=== PATIENT | female | born 1960 | race Caucasian/White ===

== ENCOUNTER 2022-04-07 06:55 | Outpatient (REF) | payer OTHER, SELFPAY ==
[2022-04-07 11:34] LABS: Hematocrit 37.9 % (37.0-47.0); Hemoglobin 12.3 g/dl (12.0-16.0); Mean Corpuscular HGB Conc 32.5 g/dl (31.0-35.0); Mean Corpuscular Hemoglobin 31.1 pg (27.0-33.0); Mean Corpuscular Volume 95.9 fL (80.0-98.0); Mean Platelet Volume 10.8 fL (9.4-12.3); Platelet Count 264 X10*3/uL (160-400); Red Blood Count 3.95 X10*6/uL (4.20-5.50); Red Cell Distribution Width 13.3 % (11.0-16.0); White Blood Count 5.2 X10*3/uL (4.8-10.8)
[2022-04-07 11:52] LABS: Alanine Aminotransferase 16 U/L (0-31); Albumin Level 4.5 g/dL (3.5-5.0); Alkaline Phosphatase 76 U/L (39-117); Anion Gap 11 (12-20); Aspartate Amino Transferase 22 U/L (5-31); Bilirubin Total 0.5 mg/dL (0.0-1.0); Blood Urea Nitrogen 15 mg/dL (9-16); Calcium 9.3 mg/dL (8.4-10.2); Carbon Dioxide 28 mmol/L (22-29); Chloride 107 mmol/L (96-108); Cholesterol 207 mg/dL; Estimated Glomerular Filt Rate > 60; Glucose Fasting 104 mg/dL (60-99); HDL Cholesterol 76 mg/dL; LDL Cholesterol Calculated 123 mg/dl; Potassium 4.1 mmol/L (3.3-5.1); Sodium 142 mmol/L (135-145); Total Protein 6.5 g/dL (6.5-8.0); Triglycerides 44 mg/dL
[2022-04-07 12:16] LABS: TSH reflex Free T4 0.76 uIU/mL (0.32-4.0); Vitamin D 25-OH Total 58.6 ng/mL (>30)
== END 2022-04-07 06:56 | disposition home or self-care (01) ==
LOC: HO.HMGCLDS 06:55
PROVIDERS: Visit Provider Internal Medicine
DX: E03.9 Hypothyroidism, unspecified (principal); I10 Essential (primary) hypertension
CPT/HCPCS: 36415; 80053; 80061; 82306; 84443; 85027

== ENCOUNTER 2022-09-01 12:03 | Outpatient (REF) | payer OTHER, SELFPAY ==
[2022-09-01 13:49] LABS: MANUAL DIFF FLAG NO
[2022-09-01 13:59] LABS: Basophils Percent Auto 0.4 % (0-2); Eosinophils Absolute Auto 0.1 X10*3/uL (0.0-0.4); Hematocrit 41.8 % (37.0-47.0); Hemoglobin 13.7 g/dl (12.0-16.0); Imm Gran Abs Auto 0.02 X10*3/uL (0.00-0.03); Imm Gran Pct Auto 0.3 % (0.0-0.4); Lymphocytes Absolute Auto 2.1 X10*3/uL (1.2-4.9); Lymphocytes Percent Auto 30.2 % (20-40); Mean Corpuscular HGB Conc 32.8 g/dl (31.0-35.0); Mean Corpuscular Hemoglobin 30.9 pg (27.0-33.0); Mean Corpuscular Volume 94.1 fL (80.0-98.0); Mean Platelet Volume 10.6 fL (9.4-12.3); Monocytes Absolute Auto 0.4 X10*3/uL (0.1-1.2); Monocytes Percent Auto 5.2 % (2-11); Neutrophils Absolute Auto 4.4 x10*3/uL (2.0-8.3); Neutrophils Percent Auto 62.9 % (45-73); Platelet Count 320 X10*3/uL (160-400); Red Blood Count 4.44 X10*6/uL (4.20-5.50); Red Cell Distribution Width 12.9 % (11.0-16.0); White Blood Count 7.1 X10*3/uL (4.8-10.8)
[2022-09-01 14:01] LABS: Appearance Urine Clear; Color Urine Yellow; Glucose Urine UA Negative (Negative); Leukocyte Esterase Urine Negative (Negative); Nitrite Urine Negative (Negative); PH 5.5 (5.0-9.0); Specific Gravity - Urine <= 1.005 (1.005-1.025); Urine Blood Negative (Negative); Urine Ketones Negative (Negative); Urine Protein Negative (Neg-Trace)
[2022-09-01 14:30] LABS: Alanine Aminotransferase 19 U/L (0-31); Albumin Level 5.1 g/dL (3.5-5.0); Alkaline Phosphatase 94 U/L (39-117); Anion Gap 11 (12-20); Aspartate Amino Transferase 24 U/L (5-31); Bilirubin Total 0.7 mg/dL (0.0-1.0); Blood Urea Nitrogen 10 mg/dL (9-16); Calcium 10.3 mg/dL (8.4-10.2); Carbon Dioxide 27 mmol/L (22-29); Chloride 104 mmol/L (96-108); Estimated Glomerular Filt Rate > 60; Glucose Random 87 mg/dL (60-115); Potassium 4.2 mmol/L (3.3-5.1); Sodium 138 mmol/L (135-145); TSH reflex Free T4 0.55 uIU/mL (0.32-4.0); Total Protein 7.3 g/dL (6.5-8.0); Vitamin D 25-OH Total 44.6 ng/mL (>30)
[2022-09-01 14:46] LABS: Erythrocyte Sedimentation Rate 5 MM/HR (0-20)
== END 2022-09-01 12:04 | disposition home or self-care (01) ==
LOC: HO.HMGCLDS 12:03
PROVIDERS: PCP Internal Medicine; Visit Provider Internal Medicine
DX: R10.9 Unspecified abdominal pain (principal); I10 Essential (primary) hypertension; E03.9 Hypothyroidism, unspecified; R63.4 Abnormal weight loss
CPT/HCPCS: 36415; 80053; 81003; 82306; 84443; 85025; 85652

== ENCOUNTER 2022-09-22 14:51 | Outpatient (REF) | payer OTHER, SELFPAY ==
--- NOTE | ~2022-09-22 | MM_ITS ---
EXAMINATION: BONE DENSITOMETRY CLINICAL INDICATION: Asymptomatic menopausal state. COMPARISON: This is the patient's baseline examination. TECHNIQUE: Using a [employer] DXA System (software version: 13.1) manufactured by [employer], dual-energy x-ray absorptiometry was performed of the lumbar spine and left hip. The images are of good technical quality. Summary results are attached. FINDINGS: AP SPINE L1-L3 (excluding L4): The data of L1-L4 has been changed to exclude the L4 vertebral body, because degenerative sclerosis at this level may cause overestimation of lumbar spine density. BMD 1.113 g/cm2, Z-score 1.0, T-score -0.5, normal. LEFT FEMUR, NECK: BMD 0.914 g/cm2, Z-score 0.5, T-score -0.9, normal. LEFT FEMUR, TOTAL: BMD 0.936 g/cm2, Z-score 0.5, T-score -0.6, normal. IDENTIFIED RISK FACTORS: Hysterectomy, left oophorectomy, menopause. HISTORY OF FRACTURE: None listed. MEDICATIONS: Vitamin D. MM/XR DEXA axial skeleton IMPRESSION: 1. DIAGNOSIS: Normal bone density based on the lowest T-score value of -0.9 in the femoral neck applying World Health Organization criteria. 2. 10-YEAR FRACTURE RISK PREDICTION, FRAX: According to the guidelines, FRAX calculation should only be performed on patients in the osteopenia bone density category. Therefore, FRAX was not performed on this patient. 3. Treatment Recommendations: NOF guidelines recommend consideration for treatment in postmenopausal women and men age 50 and older presenting with the following: -A hip or vertebral (clinical or morphometric) fracture. -T-score less than or equal to -2.5 at the femoral neck or spine after appropriate evaluation to exclude secondary causes. -Low bone mass at the hip or spine and a 10-year fracture probability by FRAX of greater than or equal to 3% for hip fracture or greater than or equal to 20% for major osteoporotic fracture based on the [place] adapted WHO algorithm. 4. Other Recommendations: All treatment decisions require clinical judgment and consideration of individual patient factors, including patient preferences, comorbidities, previous drug use, risk factors not captured in the FRAX model (e.g. frailty, falls, vitamin D deficiency, increased bone turnover, interval significant decline in bone density) and possible under or overestimation of fracture risk by FRAX. FUTURE SCAN RECOMMENDATION: People with diagnosed cases of osteoporosis or at high risk for fracture should have regular bone mineral density tests. For patients eligible for Medicare, routine testing is allowed once every 2 years. The testing frequency can be increased to one year for patients who have rapidly progressing disease, those who are receiving or discontinuing medical therapy to restore bone mass, or have additional risk factors.
== END 2022-09-22 14:52 | disposition home or self-care (01) ==
LOC: HO.MAMMO 14:51
PROVIDERS: PCP Internal Medicine; Visit Provider Internal Medicine
DX: Z13.820 Encounter for screening for osteoporosis (principal); Z78.0 Asymptomatic menopausal state
CPT/HCPCS: 77080

== ENCOUNTER 2023-09-14 08:47 | Outpatient (AMB) | payer OTHER, SELFPAY ==
[2023-09-14 09:04] VITALS: BP 120/62; PULSE 74; O2SAT 98; BMI 20.5
--- NOTE | 2023-09-14 09:04 | MHC.PC.OV ---
Vital Signs 09/14/23 09:04 Height 5 ft 6 in Weight 127 lb BMI 20.5 BP 120/62 Blood Pressure Location Lt brachial Position Sitting Pulse 74 Pulse Source Pulse Oximeter Pulse Oximetry (%) 98 Oxygen Delivery Method Room Air Intake Visit Reasons: Annual PE Intake Note: Pt is here today for PE. Pt states that she had pap 5-6 years ago. Pt had hysterectomy. Allergies nitrofurantoin [Macrobid] Allergy (Unknown, Verified 09/14/23 09:05) Vomiting Sulfa (Sulfonamide Antibiotics) Allergy (Unknown, Verified 09/14/23 09:05) Facial Swelling sulfamethoxazole [From Bactrim] Allergy (Unknown, Verified 09/14/23 09:05) Facial Swelling trimethoprim [From Bactrim] Allergy (Unknown, Verified 09/14/23 09:05) facial swelling Medication List - Last Reconciled 09/14/23 by Maria E Ulloa MD bupropion HCl 150 mg PO DAILY cholecalciferol (vitamin D3) 125 mcg PO DAILY levothyroxine 100 mcg PO DAILY lisinopril 20 mg PO DAILY multivitamin 1 tab PO DAILY Tobacco use date assessed: 09/14/23 Dental Screening Dental Screen Date: 09/14/23 Did you have a dental visit in the last 12 months?: Yes Did you have a dental problem in the last 6 months where you did not have access to dental care?: No Was dental information given to patient?: Patient has dentist HPI Annual PE HPI Details Pt presents for PE. She is doing very well started vegan diet and has been exercising regularly. Patient is going on a ski trip to [place] in the end of October. [facility] Medical History Anxiety Left foot drop Hypothyroidism HTN (hypertension) Surgical History H/O colonoscopy S/P lumbar spine operation No pertinent past surgical history Family History Father No problems noted. Mother Stroke Diabetes mellitus Substance use disorder Mental health disorder Maternal Grandfather Substance use disorder Sister Substance use disorder Social History Housing: House Patient Tobacco Use Status: Former Tobacco user Years Smoked: 24 yrs e-Cigarette/Vaping Use: Never Used service: No Current occupational status: employed Cognitive needs: No Hearing needs: No Vision needs: Yes Questionnaire PHQ-9 Over the last 2 weeks, how often have you been bothered by any of the following problems? 1. Little interest or pleasure in doing things: not at all 2. Feeling down, depressed, or hopeless: not at all 3. Trouble falling or staying asleep, or sleeping too much: not at all 4. Feeling tired or having little energy: not at all 5. Poor appetite or overeating: not at all 6. Feeling bad about yourself - or that you are a failure or have let yourself or your family down: not at all 7. Trouble concentrating on things, such as reading the newspaper or watching television: not at all 8. Moving or speaking so slowly that other people could have noticed. Or the opposite - being so fidgety or restless that you have been moving around a lot more than usual: not at all 9. Thoughts that you would be better off or of hurting yourself in some way: not at all Total score: 0 Depression Screening Interpretation: Negative Depression Screening Done: Yes Source: Developed by Drs. Haresh Gonsalez, Christie Blanco, Sylvester Lucas and colleagues, with an educational alla from [employer]. Thrive Questionnaire Date Thrive assessed: 09/14/23 I am a: Patient What is your living situation today?: I have a steady place to live Within the past 12 months, did the food you bought not last and you didn't have the money to get more?: Never true Within the past 12 months, did you worry whether your food would run out before you got money to buy more?: Never true Do you have trouble paying for medicines?: No Do you have trouble getting transportation to medical appointments?: No Do you have trouble paying your heating and electricity bill?: No Do you have trouble taking care of your child, family member or friend?: No Do you have trouble with day-to-day activities such as bathing, preparing meals, shopping, managing finances, etc.?: No Are you currently unemployed and looking for a job?: No Are you interested in more education?: No Please select the resources that you would like help with: None AUDIT C Alcohol Use Questionnaire (AUDIT-C) 1. How often do you have a drink containing alcohol?: Never 3. How often do you have six or more drinks on one occasion?: Never Total Score: 0 TIFFANY-7 AMB Questionnaire TIFFANY-7 Date TIFFANY - 7 assessed: 09/14/23 Feeling nervous, anxious, or on edge: 0 = Not at all Not being able to stop or control worryin = Not at all Worrying too much about different things: 0 = Not at all Trouble relaxin = Not at all Being so restless that it is hard to sit still: 0 = Not at all Becoming easily annoyed or irritable: 0 = Not at all Feeling afraid as if something awful might happen: 0 = Not at all Total TIFFANY-7 score (0-4 normal; 5-9 mild; 10-14 moderate; 15-21 severe): 0 Source: Developed by Drs. Haresh Gonsalez, Christie Blanco, Sylvesetr Lucas and colleagues, with an educational alla from [employer]. Review of Systems Const All systems reviewed & are unremarkable except as noted in HPI and below Reports no additional complaints Eyes Reports no additional complaints ENT Reports no additional complaints Card Reports no additional complaints GI Reports no additional complaints Reports no additional complaints Musc Reports no additional complaints Physical exam (Primary Care) Vital Signs: Last Vital Signs Pulse 74 09/14/23 09:04 BP 136/62 09/14/23 09:04 Pulse Ox 98 09/14/23 09:04 Oxygen Delivery Method Room Air 09/14/23 09:04 BMI result Body Mass Index 20.5 Tobacco/Smoking Status: Tobacco use Status Tobacco use date assessed 09/14/23 09/14/23 09:12 Patient Tobacco Use Status Former Tobacco user 09/14/23 09:04 e-Cigarette/Vaping Use Never Used 09/14/23 09:04 PHQ-9: PHQ-9 Score PHQ-9: Total score 0 09/14/23 09:14 Depression Screening Interpretation: Negative Thrive Assessment: Date of Thrive Assessment Date Thrive assessed 09/14/23 09/14/23 09:14 Const General: no acute distress HENMT Head: Yes normal to inspection Ears: hearing grossly normal bilaterally Mouth: Normal oral and palatal mucosa present Throat: Yes posterior oropharynx normal Eyes General: appearance normal, both eyes and all related structures Neck Neck: Yes no lymphadenopathy and Yes supple Resp Effort & Inspection: normal respiratory effort Auscultation: clear to auscultation bilaterally Cardio Rhythm: regular rhythm Heart sounds: S1 normal heart sound present and S2 normal heart sound present GI Inspection: Yes normal to inspection Palpation (GI): Soft to palpation Percussion: Yes normal to percussion Auscultation: normal bowel sounds Assessment and Plan Assessment & Plan (1) HTN (hypertension): Comment: BP goal less than 130/80 Code(s): I10 - Essential (primary) hypertension Plan: Continue lisinopril (2) Hypothyroidism: Code(s): E03.9 - Hypothyroidism, unspecified Plan: Continue levothyroxine patient will return for fasting labs (3) Annual physical exam: Code(s): Z00.00 - Encounter for general adult medical examination without abnormal findings Plan: Well-balanced diet regular physical activity discussed with the patient. She had a negative mammogram last July, negative colonoscopy 2015 and patient does not need Pap because she had a hysterectomy. She is concerned about her increased risk for heart disease because her father had 1st CA in late 30s and CT coronary calcium score will be obtained. (4) Anxiety: Code(s): F41.9 - Anxiety disorder, unspecified Plan: Patient will be tapering down Bupropion to every day Orders: Orders Comprehensive [place]. Panel Fast Today E03.9 - Hypothyroidism, unspecified, I10 - Essential (primary) hypertension, Z00.00 - Encounter for general adult medical examination without abnormal findings Lipid Panel Today E03.9 - Hypothyroidism, unspecified, I10 - Essential (primary) hypertension, Z00.00 - Encounter for general adult medical examination without abnormal findings Complete Blood Count Auto Diff Today E03.9 - Hypothyroidism, unspecified, I10 - Essential (primary) hypertension, Z00.00 - Encounter for general adult medical examination without abnormal findings CT Coronary Calcium Score Today TSH reflex Free T4 Today E03.9 - Hypothyroidism, unspecified, I10 - Essential (primary) hypertension, Z00.00 - Encounter for general adult medical examination without abnormal findings Vitamin B12 and Folate Today E03.9 - Hypothyroidism, unspecified, I10 - Essential (primary) hypertension, Z00.00 - Encounter for general adult medical examination without abnormal findings Vitamin D 25-OH Total Today E03.9 - Hypothyroidism, unspecified, I10 - Essential (primary) hypertension, Z00.00 - Encounter for general adult medical examination without abnormal findings Coding Level of Care Code Est Pt Prev Care 40-64y(29461) Diagnoses HTN (hypertension) I10 Hypothyroidism E03.9 Annual physical exam Z00.00 Anxiety F41.9
== END 2023-09-14 10:29 | disposition home or self-care (01) ==
PROVIDERS: PCP Internal Medicine; Visit Provider Internal Medicine
DX: I10 Essential (primary) hypertension (principal); E03.9 Hypothyroidism, unspecified; Z00.00 Encounter for general adult medical examination without abnormal findings; F41.9 Anxiety disorder, unspecified
CPT/HCPCS: 99396

== ENCOUNTER 2023-09-23 08:10 | Outpatient (REF) | payer OTHER, SELFPAY ==
[2023-09-23 11:14] LABS: MANUAL DIFF FLAG NO
[2023-09-23 11:19] LABS: Basophils Percent Auto 0.5 % (0-2); Eosinophils Absolute Auto 0.1 X10*3/uL (0.0-0.4); Eosinophils Percent Auto 2.2 % (0-4); Hematocrit 39.2 % (37.0-47.0); Imm Gran Abs Auto 0.01 X10*3/uL (0.00-0.03); Imm Gran Pct Auto 0.2 % (0.0-0.4); Lymphocytes Absolute Auto 2.1 X10*3/uL (1.2-4.9); Lymphocytes Percent Auto 34.6 % (20-40); Mean Corpuscular HGB Conc 33.2 g/dl (31.0-35.0); Mean Corpuscular Hemoglobin 31.3 pg (27.0-33.0); Mean Corpuscular Volume 94.5 fL (80.0-98.0); Mean Platelet Volume 11.5 fL (9.4-12.3); Monocytes Absolute Auto 0.3 X10*3/uL (0.1-1.2); Monocytes Percent Auto 5.4 % (2-11); Neutrophils Absolute Auto 3.4 x10*3/uL (2.0-8.3); Neutrophils Percent Auto 57.1 % (45-73); Platelet Count 277 X10*3/uL (160-400); Red Blood Count 4.15 X10*6/uL (4.20-5.50); Red Cell Distribution Width 12.6 % (11.0-16.0)
[2023-09-23 11:40] LABS: Alanine Aminotransferase 13 U/L (0-31); Albumin Level 4.7 g/dL (3.5-5.0); Alkaline Phosphatase 95 U/L (39-117); Anion Gap 11 (12-20); Aspartate Amino Transferase 22 U/L (5-31); Bilirubin Total 0.6 mg/dL (0.0-1.0); Blood Urea Nitrogen 9 mg/dL (9-16); Calcium 9.8 mg/dL (8.4-10.2); Carbon Dioxide 26 mmol/L (22-29); Chloride 107 mmol/L (96-108); Cholesterol 184 mg/dL (<200); Estimated Glomerular Filt Rate > 60; Glucose Fasting 88 mg/dL (60-99); HDL Cholesterol 64 mg/dL (>40); LDL Cholesterol Calculated 108 mg/dL (<100); Potassium 3.7 mmol/L (3.3-5.1); Sodium 140 mmol/L (135-145); Total Protein 6.9 g/dL (6.5-8.0); Triglycerides 60 mg/dL (<150)
[2023-09-23 12:00] LABS: TSH reflex Free T4 1.11 uIU/mL (0.32-4.0); Vitamin D 25-OH Total 86.1 ng/mL (>30)
[2023-09-23 12:03] LABS: Folate 6.6 ng/mL (> or = 4.0); Vitamin B12 645 pg/mL (200-900)
== END 2023-09-23 08:11 | disposition home or self-care (01) ==
LOC: HO.HMGCLDS 08:10
PROVIDERS: PCP Internal Medicine; Visit Provider Internal Medicine
DX: Z00.00 Encounter for general adult medical examination without abnormal findings (principal); E03.9 Hypothyroidism, unspecified; I10 Essential (primary) hypertension
CPT/HCPCS: 36415; 80053; 80061; 82306; 82607; 82746; 84443; 85025

== ENCOUNTER 2024-03-04 13:42 | Outpatient (AMB) | payer OTHER, SELFPAY ==
--- NOTE | 2024-03-04 13:53 | MHC.PC.OV ---
Vital Signs 03/04/24 13:56 Height 5 ft 6 in Weight 127 lb BMI 20.5 BP 126/66 Blood Pressure Location Rt brachial Position Sitting Pulse 80 Pulse Source Pulse Oximeter Pulse Oximetry (%) 95 Oxygen Delivery Method Room Air Intake Visit Reasons: 6 month HTN Intake Note: Pt is here today for 6 months follow up visit. Allergies nitrofurantoin [Macrobid] Allergy (Unknown, Verified 03/04/24 13:57) Vomiting Sulfa (Sulfonamide Antibiotics) Allergy (Unknown, Verified 03/04/24 13:57) Facial Swelling sulfamethoxazole [From Bactrim] Allergy (Unknown, Verified 03/04/24 13:57) Facial Swelling trimethoprim [From Bactrim] Allergy (Unknown, Verified 03/04/24 13:57) facial swelling Medication List - Last Reconciled 03/04/24 by Maria E Ulloa MD bupropion HCl SR 150 mg PO DAILY cholecalciferol (vitamin D3) 125 mcg PO DAILY levothyroxine 100 mcg PO DAILY lisinopril 20 mg PO DAILY multivitamin 1 tab PO DAILY Tobacco use date assessed: 03/04/24 Dental Screening Dental Screen Date: 03/04/24 Did you have a dental visit in the last 12 months?: Yes Did you have a dental problem in the last 6 months where you did not have access to dental care?: No Was dental information given to patient?: Patient has dentist HPI 6 month HTN HPI Details Pt presents for f/u HTN, hypercholesterolemia, hypothyroid, stable on meds. Patient has stopped taking bupropion and has been feeling well. [facility] Medical History Anxiety Left foot drop Hypothyroidism HTN (hypertension) Surgical History H/O colonoscopy S/P lumbar spine operation No pertinent past surgical history Family History Father No problems noted. Mother Stroke Diabetes mellitus Substance use disorder Mental health disorder Maternal Grandfather Substance use disorder Sister Substance use disorder Social History Housing: House Patient Tobacco Use Status: Former Tobacco user Years Smoked: 24 yrs e-Cigarette/Vaping Use: Never Used service: No Current occupational status: employed Cognitive needs: No Hearing needs: No Vision needs: Yes Questionnaire PHQ-9 Over the last 2 weeks, how often have you been bothered by any of the following problems? 1. Little interest or pleasure in doing things: not at all 2. Feeling down, depressed, or hopeless: not at all 3. Trouble falling or staying asleep, or sleeping too much: not at all 4. Feeling tired or having little energy: not at all 5. Poor appetite or overeating: not at all 6. Feeling bad about yourself - or that you are a failure or have let yourself or your family down: not at all 7. Trouble concentrating on things, such as reading the newspaper or watching television: not at all 8. Moving or speaking so slowly that other people could have noticed. Or the opposite - being so fidgety or restless that you have been moving around a lot more than usual: not at all 9. Thoughts that you would be better off or of hurting yourself in some way: not at all Total score: 0 Depression Screening Interpretation: Negative Depression Screening Done: Yes Source: Developed by Drs. Haresh Gonsalez, Christie Blanco, Sylvester Lucas and colleagues, with an educational alla from [employer]. Thrive Questionnaire Date Thrive assessed: 03/04/24 I am a: Patient What is your living situation today?: I have a steady place to live Within the past 12 months, did the food you bought not last and you didn't have the money to get more?: Never true Within the past 12 months, did you worry whether your food would run out before you got money to buy more?: Never true Do you have trouble paying for medicines?: No Do you have trouble getting transportation to medical appointments?: No Do you have trouble paying your heating and electricity bill?: No Do you have trouble taking care of your child, family member or friend?: No Do you have trouble with day-to-day activities such as bathing, preparing meals, shopping, managing finances, etc.?: No Are you currently unemployed and looking for a job?: No Are you interested in more education?: No Please select the resources that you would like help with: None THRIVE Score: 0 AUDIT C Alcohol Use Questionnaire (AUDIT-C) 1. How often do you have a drink containing alcohol?: Never 3. How often do you have six or more drinks on one occasion?: Never Total Score: 0 TIFFANY-7 AMB Questionnaire TIFFANY-7 Date TIFFANY - 7 assessed: 03/04/24 Feeling nervous, anxious, or on edge: 0 = Not at all Not being able to stop or control worryin = Not at all Worrying too much about different things: 0 = Not at all Trouble relaxin = Not at all Being so restless that it is hard to sit still: 0 = Not at all Becoming easily annoyed or irritable: 0 = Not at all Feeling afraid as if something awful might happen: 0 = Not at all Total TIFFANY-7 score (0-4 normal; 5-9 mild; 10-14 moderate; 15-21 severe): 0 Source: Developed by Drs. Haresh Gonsalez, Christie Blanco, Sylvester Lucas and colleagues, with an educational alla from [employer]. Review of Systems Const All systems reviewed & are unremarkable except as noted in HPI and below Reports no additional complaints Eyes Reports no additional complaints ENT Reports no additional complaints Card Reports no additional complaints Resp Reports no additional complaints Physical exam (Primary Care) Vital Signs: Last Vital Signs Pulse 80 03/04/24 13:56 BP 126/66 03/04/24 13:56 Pulse Ox 95 03/04/24 13:56 Oxygen Delivery Method Room Air 03/04/24 13:56 BMI result Body Mass Index 20.5 Tobacco/Smoking Status: Tobacco use Status Tobacco use date assessed 03/04/24 03/04/24 14:02 Patient Tobacco Use Status Former Tobacco user 03/04/24 14:02 e-Cigarette/Vaping Use Never Used 03/04/24 14:02 PHQ-9: PHQ-9 Score PHQ-9: Total score 0 03/04/24 14:02 Depression Screening Interpretation: Negative Thrive Assessment: Date of Thrive Assessment Date Thrive assessed 03/04/24 03/04/24 14:02 Const General: no acute distress HENMT Head: Yes normal to inspection Ears: hearing grossly normal bilaterally Mouth: Normal oral and palatal mucosa present Eyes General: appearance normal, both eyes and all related structures Neck Neck: Yes no lymphadenopathy and Yes supple Resp Effort & Inspection: normal respiratory effort Auscultation: clear to auscultation bilaterally Cardio Rhythm: regular rhythm Heart sounds: S1 normal heart sound present and S2 normal heart sound present GI Inspection: Yes normal to inspection Palpation (GI): Soft to palpation Percussion: Yes normal to percussion Assessment and Plan Assessment & Plan (1) HTN (hypertension): Comment: BP goal less than 130/80 Code(s): I10 - Essential (primary) hypertension Plan: Continue lisinopril (2) Hypothyroidism: Code(s): E03.9 - Hypothyroidism, unspecified Plan: Continue levothyroxine check TSH Orders: Orders Lipid Panel Today E03.9 - Hypothyroidism, unspecified, I10 - Essential (primary) hypertension TSH reflex Free T4 Today E03.9 - Hypothyroidism, unspecified, I10 - Essential (primary) hypertension Comprehensive [place]. Panel Fast 6 Months E03.9 - Hypothyroidism, unspecified, I10 - Essential (primary) hypertension, Z00.00 - Encounter for general adult medical examination without abnormal findings TSH reflex Free T4 6 Months E03.9 - Hypothyroidism, unspecified, I10 - Essential (primary) hypertension, Z00.00 - Encounter for general adult medical examination without abnormal findings Complete Blood Count Auto Diff 6 Months E03.9 - Hypothyroidism, unspecified, I10 - Essential (primary) hypertension, Z00.00 - Encounter for general adult medical examination without abnormal findings Lipid Panel 6 Months E03.9 - Hypothyroidism, unspecified, I10 - Essential (primary) hypertension, Z00.00 - Encounter for general adult medical examination without abnormal findings Comprehensive [place]. Panel Fast Today E03.9 - Hypothyroidism, unspecified, I10 - Essential (primary) hypertension Complete Blood Count Auto Diff Today E03.9 - Hypothyroidism, unspecified, I10 - Essential (primary) hypertension Vitamin B12 and Folate Today E03.9 - Hypothyroidism, unspecified, I10 - Essential (primary) hypertension Medications: Discontinued bupropion HCl SR Discontinued Reason: Doctor's Order 150 mg PO DAILY 90 tabs 3RF Coding Level of Care Code Est Pt Level 3 (36514) Diagnoses HTN (hypertension) I10 Hypothyroidism E03.9
[2024-03-04 13:56] VITALS: BP 126/66; PULSE 80; O2SAT 95; BMI 20.5
== END 2024-03-04 14:58 | disposition home or self-care (01) ==
PROVIDERS: PCP Internal Medicine; Visit Provider Internal Medicine
DX: I10 Essential (primary) hypertension (principal); E03.9 Hypothyroidism, unspecified
CPT/HCPCS: 99213

== ENCOUNTER 2024-03-14 06:52 | Outpatient (REF) | payer OTHER, SELFPAY ==
[2024-03-14 10:31] LABS: MANUAL DIFF FLAG NO
[2024-03-14 10:38] LABS: Basophils Percent Auto 0.7 % (0-2); Eosinophils Absolute Auto 0.2 X10*3/uL (0.0-0.4); Eosinophils Percent Auto 3.2 % (0-4); Hematocrit 37.9 % (37.0-47.0); Hemoglobin 12.6 g/dl (12.0-16.0); Imm Gran Abs Auto 0.01 X10*3/uL (0.00-0.03); Imm Gran Pct Auto 0.2 % (0.0-0.4); Lymphocytes Absolute Auto 1.9 X10*3/uL (1.2-4.9); Lymphocytes Percent Auto 33.3 % (20-40); Mean Corpuscular HGB Conc 33.2 g/dl (31.0-35.0); Mean Corpuscular Hemoglobin 31.9 pg (27.0-33.0); Mean Corpuscular Volume 95.9 fL (80.0-98.0); Mean Platelet Volume 11.8 fL (9.4-12.3); Monocytes Absolute Auto 0.3 X10*3/uL (0.1-1.2); Monocytes Percent Auto 4.9 % (2-11); Neutrophils Absolute Auto 3.2 x10*3/uL (2.0-8.3); Neutrophils Percent Auto 57.7 % (45-73); Platelet Count 263 X10*3/uL (160-400); Red Blood Count 3.95 X10*6/uL (4.20-5.50); Red Cell Distribution Width 13.1 % (11.0-16.0); White Blood Count 5.6 X10*3/uL (4.8-10.8)
[2024-03-14 11:06] LABS: Alanine Aminotransferase 16 U/L (0-31); Albumin Level 4.5 g/dL (3.5-5.0); Alkaline Phosphatase 97 U/L (39-117); Anion Gap 14 (12-20); Aspartate Amino Transferase 24 U/L (5-31); Bilirubin Total 0.5 mg/dL (0.0-1.0); Blood Urea Nitrogen 8 mg/dL (9-16); Calcium 9.5 mg/dL (8.4-10.2); Carbon Dioxide 26 mmol/L (22-29); Chloride 107 mmol/L (96-108); Cholesterol 177 mg/dL (<200); Estimated Glomerular Filt Rate > 60; Glucose Fasting 95 mg/dL (60-99); HDL Cholesterol 66 mg/dL (>40); LDL Cholesterol Calculated 98 mg/dL (<100); Potassium 3.7 mmol/L (3.3-5.1); Sodium 143 mmol/L (135-145); Total Protein 6.7 g/dL (6.5-8.0); Triglycerides 69 mg/dL (<150)
[2024-03-14 11:18] LABS: Folate 7.2 ng/mL (> or = 4.0); Vitamin B12 620 pg/mL (200-900)
[2024-03-14 11:23] LABS: TSH reflex Free T4 0.96 uIU/mL (0.32-4.0)
== END 2024-03-14 06:53 | disposition home or self-care (01) ==
LOC: HO.HMGCLDS 06:52
PROVIDERS: PCP Internal Medicine; Visit Provider Internal Medicine
DX: I10 Essential (primary) hypertension (principal); E03.9 Hypothyroidism, unspecified
CPT/HCPCS: 36415; 80053; 80061; 82607; 82746; 84443; 85025

== ENCOUNTER 2024-10-03 06:28 | Outpatient (REF) | payer OTHER, SELFPAY ==
[2024-10-03 09:51] LABS: MANUAL DIFF FLAG NO
[2024-10-03 10:02] LABS: Basophils Percent Auto 0.5 % (0-2); Eosinophils Absolute Auto 0.2 X10*3/uL (0.0-0.4); Eosinophils Percent Auto 2.9 % (0-4); Hematocrit 39.6 % (37.0-47.0); Imm Gran Abs Auto 0.02 X10*3/uL (0.00-0.03); Imm Gran Pct Auto 0.4 % (0.0-0.4); Lymphocytes Absolute Auto 1.8 X10*3/uL (1.2-4.9); Lymphocytes Percent Auto 33.2 % (20-40); Mean Corpuscular HGB Conc 32.8 g/dl (31.0-35.0); Mean Corpuscular Hemoglobin 32.4 pg (27.0-33.0); Mean Corpuscular Volume 98.8 fL (80.0-98.0); Mean Platelet Volume 10.8 fL (9.4-12.3); Monocytes Absolute Auto 0.4 X10*3/uL (0.1-1.2); Monocytes Percent Auto 6.6 % (2-11); Neutrophils Absolute Auto 3.1 x10*3/uL (2.0-8.3); Neutrophils Percent Auto 56.4 % (45-73); Platelet Count 282 X10*3/uL (160-400); Red Blood Count 4.01 X10*6/uL (4.20-5.50); Red Cell Distribution Width 12.9 % (11.0-16.0); White Blood Count 5.5 X10*3/uL (4.8-10.8)
[2024-10-03 10:17] LABS: Alanine Aminotransferase 28 U/L (0-31); Albumin Level 4.3 g/dL (3.5-5.0); Alkaline Phosphatase 84 U/L (39-117); Anion Gap 11 (12-20); Aspartate Amino Transferase 35 U/L (5-31); Bilirubin Total 0.4 mg/dL (0.0-1.0); Blood Urea Nitrogen 14 mg/dL (9-16); Carbon Dioxide 28 mmol/L (22-29); Chloride 108 mmol/L (96-108); Cholesterol 237 mg/dL (<200); Estimated Glomerular Filt Rate > 60; Glucose Fasting 96 mg/dL (60-99); HDL Cholesterol 84 mg/dL (>40); LDL Cholesterol Calculated 144 mg/dL (<100); Sodium 143 mmol/L (135-145); Total Protein 6.6 g/dL (6.5-8.0); Triglycerides 49 mg/dL (<150)
[2024-10-03 10:33] LABS: TSH reflex Free T4 1.42 uIU/mL (0.32-4.0)
== END 2024-10-03 06:29 | disposition home or self-care (01) ==
LOC: HO.HMGCLDS 06:28
PROVIDERS: PCP Internal Medicine; Visit Provider Internal Medicine
DX: Z00.00 Encounter for general adult medical examination without abnormal findings (principal); E03.9 Hypothyroidism, unspecified; I10 Essential (primary) hypertension
CPT/HCPCS: 36415; 80053; 80061; 84443; 85025

== ENCOUNTER 2024-10-10 11:24 | Outpatient (AMB) | payer OTHER, SELFPAY ==
[2024-10-10 11:48] VITALS: BP 130/74; PULSE 71; O2SAT 99; BMI 21.0
--- NOTE | 2024-10-10 11:48 | MHC.PC.OV ---
Vital Signs 10/10/24 11:48 Height 5 ft 6 in Weight 130 lb BMI 21.0 BP 130/74 Blood Pressure Location Lt brachial Position Sitting Pulse 71 Pulse Source Pulse Oximeter Pulse Oximetry (%) 99 Oxygen Delivery Method Room Air Intake Visit Reasons: Annual PE Intake Note: Pt is here today for PE. Allergies nitrofurantoin [Macrobid] Allergy (Unknown, Verified 10/10/24 11:49) Vomiting Sulfa (Sulfonamide Antibiotics) Allergy (Unknown, Verified 10/10/24 11:49) Facial Swelling sulfamethoxazole [From Bactrim] Allergy (Unknown, Verified 10/10/24 11:49) Facial Swelling trimethoprim [From Bactrim] Allergy (Unknown, Verified 10/10/24 11:49) facial swelling Medication List - Last Reconciled 10/10/24 by Maria E Ulloa MD cholecalciferol (vitamin D3) 125 mcg PO DAILY levothyroxine 100 mcg PO DAILY lisinopril 20 mg PO DAILY multivitamin 1 tab PO DAILY Tobacco use date assessed: 10/10/24 Dental Screening Dental Screen Date: 10/10/24 Did you have a dental visit in the last 12 months?: Yes Did you have a dental problem in the last 6 months where you did not have access to dental care?: No Was dental information given to patient?: Patient has dentist HPI Annual PE HPI Details Pt presents for PE. [facility] Medical History Anxiety Left foot drop Hypothyroidism HTN (hypertension) Surgical History H/O colonoscopy S/P lumbar spine operation No pertinent past surgical history Family History Father No problems noted. Mother Stroke Diabetes mellitus Substance use disorder Mental health disorder Maternal Grandfather Substance use disorder Sister Substance use disorder Social History Housing: House Patient Tobacco Use Status: Former Tobacco user Years Smoked: 24 yrs e-Cigarette/Vaping Use: Never Used service: No Current occupational status: employed Cognitive needs: No Hearing needs: No Vision needs: Yes Questionnaire PHQ-9 Over the last 2 weeks, how often have you been bothered by any of the following problems? 1. Little interest or pleasure in doing things: not at all 2. Feeling down, depressed, or hopeless: not at all 3. Trouble falling or staying asleep, or sleeping too much: not at all 4. Feeling tired or having little energy: not at all 5. Poor appetite or overeating: not at all 6. Feeling bad about yourself - or that you are a failure or have let yourself or your family down: not at all 7. Trouble concentrating on things, such as reading the newspaper or watching television: not at all 8. Moving or speaking so slowly that other people could have noticed. Or the opposite - being so fidgety or restless that you have been moving around a lot more than usual: not at all 9. Thoughts that you would be better off or of hurting yourself in some way: not at all Total score: 0 Depression Screening Interpretation: Negative Depression Screening Done: Yes 33297 - PHQ-9 Billing: Yes Source: Developed by Drs. Haresh Gonsalez, Christie Blanco, Sylvester Lucas and colleagues, with an educational alla from [employer]. Thrive Questionnaire Date Thrive assessed: 10/10/24 I am a: Patient What is your living situation today?: I have a steady place to live Within the past 12 months, did the food you bought not last and you didn't have the money to get more?: Never true Within the past 12 months, did you worry whether your food would run out before you got money to buy more?: Never true Do you have trouble paying for medicines?: No Do you have trouble getting transportation to medical appointments?: No Do you have trouble paying your heating and electricity bill?: No Do you have trouble taking care of your child, family member or friend?: No Do you have trouble with day-to-day activities such as bathing, preparing meals, shopping, managing finances, etc.?: No Are you currently unemployed and looking for a job?: No Are you interested in more education?: No Please select the resources that you would like help with: None Currently or been in a relationship where the following occur: No concerns reported THRIVE Score: 0 AUDIT C Alcohol Use Questionnaire (AUDIT-C) 1. How often do you have a drink containing alcohol?: 2-4 times a month 2. How many drinks containing alcohol do you have on a typical day when you are drinking?: 1 or 2 3. How often do you have six or more drinks on one occasion?: Never Total Score: 2 TIFFANY-7 AMB Questionnaire TIFFANY-7 Date TIFFANY - 7 assessed: 10/10/24 Feeling nervous, anxious, or on edge: 0 = Not at all Not being able to stop or control worryin = Not at all Worrying too much about different things: 0 = Not at all Trouble relaxin = Not at all Being so restless that it is hard to sit still: 0 = Not at all Becoming easily annoyed or irritable: 0 = Not at all Feeling afraid as if something awful might happen: 0 = Not at all Total TIFFANY-7 score (0-4 normal; 5-9 mild; 10-14 moderate; 15-21 severe): 0 Source: Developed by Drs. Haresh Gonsalez, Christie Blanco, Sylvester Lucas and colleagues, with an educational alla from [employer]. TIFFANY-7 Assessment Billing TIFFANY-7 Assessment Tool: TIFFANY-7 Assessment 29985 Review of Systems Const All systems reviewed & are unremarkable except as noted in HPI and below Eyes Reports no additional complaints ENT Reports no additional complaints Card Reports no additional complaints Resp Reports no additional complaints GI Reports no additional complaints Reports no additional complaints Physical exam (Primary Care) Vital Signs: Last Vital Signs Pulse 71 10/10/24 11:48 BP 130/74 10/10/24 11:48 Pulse Ox 99 10/10/24 11:48 Oxygen Delivery Method Room Air 10/10/24 11:48 BMI result Body Mass Index 21.0 Tobacco/Smoking Status: Tobacco use Status Tobacco use date assessed 10/10/24 10/10/24 11:52 Patient Tobacco Use Status Former Tobacco user 10/10/24 11:52 e-Cigarette/Vaping Use Never Used 10/10/24 11:52 PHQ-9: PHQ-9 Score PHQ-9: Total score 0 10/10/24 11:52 Depression Screening Interpretation: Negative Thrive Assessment: Date of Thrive Assessment Date Thrive assessed 10/10/24 10/10/24 11:52 Currently or been in a relationship where the following occur: No concerns reported Const General: no acute distress HENMT Head: Yes normal to inspection Ears: TM's normal bilaterally Throat: Yes posterior oropharynx normal Eyes General: appearance normal, both eyes and all related structures Neck Neck: Yes no lymphadenopathy and Yes supple Resp Effort & Inspection: normal respiratory effort Auscultation: clear to auscultation bilaterally Cardio Rhythm: regular rhythm Heart sounds: S1 normal heart sound present and S2 normal heart sound present GI Inspection: Yes normal to inspection Palpation (GI): Soft to palpation Percussion: Yes normal to percussion Auscultation: normal bowel sounds Coding Level of Care Code Est Pt Prev Care 40-64y(68490) Diagnoses HTN (hypertension) I10 Hypothyroidism E03.9 Annual physical exam Z00.00 Additional Codes TIFFANY-7 Assessment Billing - TIFFANY-7 Assessment Tool: TIFFANY-7 Assessment 78672 ([id number]) PHQ-9 - 49165 - PHQ-9 Billing: Yes ([id number]) Assessment & Plan Assessment & Plan (1) HTN (hypertension): Comment: BP goal less than 130/80 Code(s): I10 - Essential (primary) hypertension Category: Medical Plan: Continue Lisinopril (2) Hypothyroidism: Code(s): E03.9 - Hypothyroidism, unspecified Category: Medical Plan: Continue levothyroxine (3) Annual physical exam: Code(s): Z00.00 - Encounter for general adult medical examination without abnormal findings Category: Medical Plan: Well-balanced diet regular physical activity discussed with the patient. She is up-to-date with the mammogram colonoscopy and Pap by poising inspector Orders: Orders Comprehensive [place]. Panel Fast 1 Year E03.9 - Hypothyroidism, unspecified, I10 - Essential (primary) hypertension, Z00.00 - Encounter for general adult medical examination without abnormal findings Lipid Panel 1 Year E03.9 - Hypothyroidism, unspecified, I10 - Essential (primary) hypertension, Z00.00 - Encounter for general adult medical examination without abnormal findings Complete Blood Count Auto Diff 1 Year E03.9 - Hypothyroidism, unspecified, I10 - Essential (primary) hypertension, Z00.00 - Encounter for general adult medical examination without abnormal findings TSH reflex Free T4 1 Year E03.9 - Hypothyroidism, unspecified, I10 - Essential (primary) hypertension, Z00.00 - Encounter for general adult medical examination without abnormal findings Vitamin D 25-OH Total 1 Year E03.9 - Hypothyroidism, unspecified, I10 - Essential (primary) hypertension, Z00.00 - Encounter for general adult medical examination without abnormal findings Medications: Refilled levothyroxine 100 mcg PO DAILY 90 tabs 3RF lisinopril 20 mg PO DAILY 90 tabs 3RF
== END 2024-10-10 13:14 | disposition home or self-care (01) ==
PROVIDERS: PCP Internal Medicine; Visit Provider Internal Medicine
DX: I10 Essential (primary) hypertension (principal); E03.9 Hypothyroidism, unspecified; Z00.00 Encounter for general adult medical examination without abnormal findings

== ENCOUNTER → 2024-10-10 11:24 | Outpatient (BNVA) | payer OTHER, SELFPAY | PROVIDERS: PCP Internal Medicine; Visit Provider Internal Medicine | DX: Z00.00 Encounter for general adult medical examination without abnormal findings (principal); I10 Essential (primary) hypertension; E03.9 Hypothyroidism, unspecified; Z79.899 Other long term (current) drug therapy | CPT/HCPCS: 96127 ==

== ENCOUNTER 2025-05-27 08:41 | Outpatient (REF) | payer OTHER, SELFPAY ==
--- NOTE | ~2025-05-27 | XR_ITS ---
EXAMINATION: XR HAND 3 VIEWS BILATERAL HISTORY: M79.643 - Pain in unspecified hand COMPARISON: There are no prior studies available for comparison. FINDINGS: Six views of the bilateral hands are submitted. Osseous mineralization is normal. There is no fracture or dislocation. The joint spaces are preserved. The soft tissues are unremarkable. XR/XR Hand Bilat min 3v IMPRESSION: Unremarkable examination of the bilateral hands. Electronically signed by: Haresh Quiroz MD 05/27/2025 11:41 AM EDT
--- OUTSIDE RECORDS SUMMARY | 2025-05-27 08:55 | XMS_ITS | Clinical Summary ---
Author Organization [facility] Address [address] [place] [address] Phone Care Team Providers Care Vp Legal Affairs Name Role Phone Maria E Ulloa MD Primary Care Provider [phone] Encounters Date Type Department Care Team Description 05/07/2025 9:13 AM EDT - 05/07/2025 11:59 PM EDT [facility] [address] [address] Encounter for screening mammogram for breast cancer Discharge Disposition: Home or Self Care from Last 3 Months Surgical History Surgery Date Site/Laterality Comments OTHER SURGICAL HISTORY PROCEDURE: SKIN GRAFT <100SQCM TUBAL LIGATION 1990 PROCEDURE: HISTORICAL TUBAL LIGATION TONSILLECTOMY age 5 PROCEDURE: HISTORICAL TONSILLECTOMY OTHER SURGICAL HISTORY 04/01/2009 PROCEDURE: ME TOTAL ABDOMINAL HYSTERECT W/WO RMVL TUBE OVARY; COMMENT: LSO also. COLONOSCOPY 08/11/2005 PROCEDURE: HISTORICAL COLONOSCOPY; COMMENT: Diverticulosis, Dr. 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 HYSTERECTOMY 10/02/2008 - 10/01/2009 Medical History Medical History Date Comments Hypothyroidism DX:Hypothyroidis m Hypertension DX:Hypertension Chronic headache 10/13/2009 DX:Chronic head ache Diverticulosis of colon (wit hout mention of hemorrhage) 10/22/2009 DX:Diverticulosis of colon (without mention of hemorrhage) Family History Medical History Relation Name Comments Heart attack Father Hypertension Mother Breast cancer Mother's side 1 aunt Cervical cancer Sister 1 Colon cancer Neg Hx Ovarian cancer Neg Hx Relation Name Status Comments Brother Alive Daughter Alive Father (Age 68) Maternal Grandfather Maternal Grandmother Mother Alive Mother's side 1 Mother's side 2 Paternal Grandfather Paternal Grandmother Sister 1 Sister 2 Alive Son Alive Social History Tobacco Use Types Packs/Day Years Used Date Smoking Tobacco: Former Cigarettes Q uit: 07/02/1994 Alcohol Use Standard Drinks/Week Comments Yes 0 (1 standard drink = 0.6 oz pur e alcohol) Comments No Sex and Gender Information Value Date Recorded Sex Assigned at Not on file Legal Sex Female 10:20 AM EST Gender Identity Not on file Sexual Orientation Not on file Obstetrics History Para Term AB IAB SAB Ectopic Multiple Livin g Live Births 2 Last Filed Vital Signs Vital Sign Reading Time Taken Comments Blood Pressure - - Pulse - - Temperature - - Respiratory Rate - - Oxygen Saturation - - Inhaled Oxygen Concentration - - Weight 59 kg (130 lb) 05/07/2025 9:24 AM EDT Height 167.6 cm (5' 6 ) 05/07/2025 9:24 AM EDT Body Mass Index 20.98 05/07/2025 9:24 AM EDT Plan of Treatment Health Maintenance Due Date Last Done Comments DTaP,Tdap,and Td Vaccines (1 - Tdap) 1979 Pneumococcal Vaccine: 50+ Years (1 of 1 - PCV) 2010 Zoster Vaccines (1 of 2) 2010 Cholesterol Screening (Lipid Panel) 09/04/2022 Colorectal Cancer Screening: Colonoscopy 09/04/2022 HIV Screening 09/04/2022 Hepatitis C Screening 09/04/2022 Social Influencers of Health Screening 09/04/2022 Hypertension/CHF/CAD Annual BMP Blood Test 09/15/2022 COVID-19 Vaccine ( - 2023- season) 2024 Depression Screening 10/02/2024 Influenza Vaccine (#1) 2025 Breast Cancer Screening 05/07/2027 05/07/20 25, 07/17/2022, 06/13/2021, Additional history exists RSV Immunization Adult Patients (1 - 1-dose 75+ series) 2035 HIB Vaccines Aged Out No longer eligi ble based on patient's age to complete this topic HPV Vaccines Aged Out No longer eligi ble based on patient's age to complete this topic Hepatitis A Vaccines Aged Out No long er eligible based on patient's age to complete this topic Hepatitis B Vaccines Aged Out No long er eligible based on patient's age to complete this topic IPV Vaccines Aged Out No longer eligi ble based on patient's age to complete this topic MMR Vaccines Aged Out No longer eligi ble based on patient's age to complete this topic Meningococcal ACWY Vaccine Aged Out N o longer eligible based on patient's age to complete this topic Meningococcal B Vaccine Aged Out No l onger eligible based on patient's age to complete this topic RSV Immunization Patients Under 20 months Aged Out No longer eligible based on patient's age to complete this topic Varicella Vaccines Aged Out No longer eligible based on patient's age to complete this topic Procedures Procedure Name Priority Date/Time Associated Diagnosis Comments MG MAMMO DIGITAL SCREENING W PANFILO BILAT Routine 05/07/2025 9:33 AM EDT Encounter for screening mammogram for breast cancer from Last 3 Months Results * MG Mammo Digital Screening w Panfilo bilat (05/07/2025 9:33 AM EDT) Anatomical Region Laterality Modality Breast Bilateral Mammography 05/07/2025 11:0 6 AM EDT Impressions 05/07/2025 11:12 AM EDT No evidence of breast malignancy. BI-RADS CATEGORY: 1 - NEGATIVE RECOMMENDATION: Screening bilateral mammogram is recommended in 1 year. Mammo Location: [facility], [address] [place] [address], [id number], . -------- FINAL REPORT -------- Dictated By: Maite Hernandez Dictated Date: 05/07/2025 11:06 ET Assigned Physician: Maite Hernandez Reviewed and Electronically Signed By: Maite Hernandez Signed Date: 05/07/2025 11:12 ET Workstation ID: [id number] Transcribed By: Self Edit Transcribed Date: 05/07/2025 11:06 ET Narrative 05/07/2025 11:12 AM EDT CLINICAL: 64 years old, Female, routine annual exam. COMPARISON: 07/16/2022, 06/12/2021, 06/10/2020 TECHNIQUE: Bilateral MLO and CC views were obtained digitally with 3-D mammogram (digital breast tomosynthesis). Computer-aided detection was utilized in evaluation of this exam (CAD). FINDINGS: There is no evidence of suspicious mass or architectural distortion. No worrisome calcifications are evident. There has been no significant change from prior exam(s). BREAST DENSITY: B - There are scattered areas of fibroglandular density. Procedure Note Maite Hernandez MD - 05/07/2025 CLINICAL: 64 years old, Female, routine annual exam. COMPARISON: 07/16/2022, 06/12/2021, 06/10/2020 TECHNIQUE: Bilateral MLO and CC views were obtained digitally with 3-Dmammogram (digital breast tomosynthesis). Computer-aided detection wasutilized in evaluation of this exam (CAD). FINDINGS: There is no evidence of suspicious mass or architectural distortion. Noworrisome calcifications are evident. There has been no significantchange from prior exam(s). BREAST DENSITY: B - There are scattered areas of fibroglandular density. IMPRESSION: No evidence of breast malignancy. BI-RADS CATEGORY: 1 - NEGATIVE RECOMMENDATION: Screening bilateral mammogram is recommended in 1 year. Mammo Location: [facility], [address] [place] [address], [id number], . -------- FINAL REPORT -------- Dictated By: Maite Hernandez Dictated Date: 05/07/2025 11:06 ET Assigned Physician: Maite Hernandez Reviewed and Electronically Signed By: Maite Hernandez Signed Date: 05/07/2025 11:12 ET Workstation ID: [id number] Transcribed By: Self Edit Transcribed Date: 05/07/2025 11:06 ET us Self Referral Sppl IMG BI PROCEDURES Final Resul t from Last 3 Months Insurance [facility] Care Teams Vp Legal Affairs Relationship Specialty Start Date End Date Maria E Ulloa MD [address] [facility] [place] [address] PCP - General 02/13/1994
--- OUTSIDE RECORDS SUMMARY | 2025-05-27 08:55 | XMS_ITS | Patient Health Record ---
Author Organization [facility] Address [address] [place] [address] Care Team Providers Care Rn Field Case Manager Name Role Phone Maria E Ulloa MD Primary Care Provider Unavaila ble Black, Lexie Unavailable [phone] Allergies Allergen (clinical drug ingredient) Drug/Non Drug Allergy documented on EMR Reaction Allergy Type Onset Date Status Sulfa Drugs (Bactrim) (uncoded) Facial swelling Allergy Active nitrofurantoin, macrocrystals / nitrofurantoin, monohydrate Macrobid Joint pain, nausea Drug Allergy Active Reason For Referral No Information Medications Medication SIG (Take, Route, Frequency, Duration) Notes Start Date End Date Status Physical Therapy 3-4x per week for 3- 4 weeks 12/30/2016 Active Wellbutrin Active Levothyroxine Sodium Active Ativan 0.5 MG 1 tablet as needed Orally every 6 hrs Active Vitamin D Active Lisinopril Active ASO Ankle/Foot Stablizing AFO As directed Wear Daily; Duration: as needed 01/25/2017 Active Social History Tobacco use other than smoking: Question Answer Notes Are you an other tobacco user? No Problems Problem Type SNOMED Code ICD Code Onset Dates Problem Status W/U Status Risk Notes Problem Acquired hallux malleus of left great toe (disorder) ([id number]) Hallux limitus of left foot (M20.5X2) Active confirmed Plan Of Treatment No Information Insurance Providers Payer Name Payer Address Payer Phone Subscriber Number Group Number Insured Name Patient Relationship to Insured Coverage Start Date Coverage End Date [facility] [address] [place] [address] [id number] Rosibel Andino Self - patient is the insured Medical (General) History Medical History History ICD Code Back pain Chicken pox Depression High blood pressure Measles Sciatica Spina bifida Thyroid disorder Surgical History Surgery Date(Month/Year) microdiscectomy (L4-L5) 08/2016 Hysterectomy 04/2009
== END 2025-05-27 08:42 | disposition home or self-care (01) ==
LOC: HO.HOSX 08:41
DX: M72.0 Palmar fascial fibromatosis [Dupuytren] (principal)
CPT/HCPCS: 73130

== ENCOUNTER 2025-05-27 11:08 | Outpatient (AMB) | payer OTHER, SELFPAY ==
[2025-05-27 11:13] VITALS: BMI 21.0
--- NOTE | 2025-05-27 11:13 | A.OFFVIS_ITS ---
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 She reports her right ring and small fingers have been bending since November,. Patient denies any pain. She states her symptoms have worsened since November but the nodules have been there for about 8 months or so. 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 She reports her right ring and small fingers have been bending since November,. Patient denies any pain. She states her symptoms have worsened since November but the nodules have been there for about 8 months or so. Patient reports that the only contraction of the these joints is at the PIP joint of the right small finger, and this is why she can not lay flat on table with the right hand. [facility] Medical History (Updated 05/27/25 @ 17:45 by BOBBI Armstrong) Anxiety Left foot drop Hypothyroidism HTN (hypertension) Surgical History (Updated 01/27/25 @ 15:01 by Rosaura Stephens) H/O colonoscopy (~09/14/16) S/P lumbar spine operation No pertinent past surgical history Family History Father No problems noted. Mother Stroke Diabetes mellitus Substance use disorder Mental health disorder Maternal Grandfather Substance use disorder Sister Substance use disorder Social History (Updated 05/27/25 @ 11:47 by TAWANDA Chairez) Housing: House Patient Tobacco Use Status: Former Tobacco user Years Smoked: 24 yrs e-Cigarette/Vaping Use: Never Used service: No Current occupational status: employed Current occupation: [employer] Cognitive needs: No Hearing needs: No Vision needs: Yes Review of Systems Const All systems reviewed & are unremarkable except as noted in HPI and below Physical Exam Vital Signs: BMI result Body Mass Index 21.0 Extrem Other: Patient is alert, oriented, and in no acute distress. Neuro: Normal sensation of the tips of all digits of the bilateral hand at this time Vascular: Cap refill brisk Pain: No tenderness to palpation about Dupuytren's nodules of bilateral hands, or Dupuytren's cord noted of the right palm extending into the small finger to above the PIP joint ROM: There is an approximately 30 degree contracture of the PIP joint of the right small finger Patient is able to flex and extend all other digits of the right hand fully and without difficulty Skin: No lacerations or abrasions. General: No ecchymosis, erythema, or evidence of infection. Psych: Appears grossly normal Affect normal Attitude cooperative Results Reviewed Results Reviewed: X-rays obtained in the office today and independently reviewed by me, Abhi Ruiz PA-C, demonstrate no fracture or acute bony abnormality of bilateral hands. Assessment & Plan Assessment & Plan (1) Dupuytren's contracture of right hand: Code(s): M72.0 - Palmar fascial fibromatosis [Dupuytren] Category: Medical Plan 1. Dupuytren's contracture of right small finger 30 degree contracture of PIP joint of right small finger noted Patient is educated about this condition Patient is educated on the treatment options available At this time, patient states she would like to be booked an appointment with Dr. Davis to discuss potential Xiaflex injections or partial Dupuytren's fascie ctomy Patient expresses she is also interested in radiotherapy for potential treatment, although patient is educated that this is not a procedure that we have performed here Patient understands this in his amenable to this plan Follow-up for next available appointment with Dr. Davis for discussion of Dupuytren's contracture of the right small finger, sooner with any acute concerns Orders: Orders XR Hand Bilat min 3v Today M79.643 - Pain in unspecified hand Coding Level of Care Code New Pt Level 3 (70686) Diagnoses Dupuytren's contracture of right hand M72.0
== END 2025-05-27 12:01 | disposition home or self-care (01) ==
LOC: HO.HOS 11:09
PROVIDERS: PCP Internal Medicine
DX: M72.0 Palmar fascial fibromatosis [Dupuytren] (principal)
CPT/HCPCS: 99203

== ENCOUNTER → 2025-05-27 11:11 | Outpatient (BNV) | payer OTHER, SELFPAY | PROVIDERS: Visit Provider Radiology Diagnostic Radiology | DX: M79.641 Pain in right hand (principal); M79.642 Pain in left hand | CPT/HCPCS: 73130 ==

== ENCOUNTER 2025-06-25 13:00 | Outpatient (AMB) | payer OTHER, SELFPAY ==
--- NOTE | 2025-06-25 13:08 | A.OFFVIS_ITS ---
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 She reports her right ring and small fingers have been bending since November,. Patient denies any pain. She states her symptoms have worsened since November but the nodules have been there for about 8 months. Last seen with Angelique Moe who advise patient to be seen with Dr Davis to discuss treatment plans. Denies numbness, tingling or locking of any finger. Allergies nitrofurantoin (Macrobid) Allergy (Unknown, Verified 06/25/25 13:14) Vomiting Sulfa (Sulfonamide Antibiotics) Allergy (Unknown, Verified 06/25/25 13:14) Facial Swelling sulfamethoxazole (From Bactrim) Allergy (Unknown, Verified 06/25/25 13:14) Facial Swelling trimethoprim (From Bactrim) Allergy (Unknown, Verified 06/25/25 13:14) facial swelling HPI HPI newprob-Right small finger dupuytren's: Details: Rosibel is a 64 year old right hand dominant woman who presents for her right small finger Dupuytrens contracture. She complains of a contracture of her right small finger, as well as painful nodules in her palm since at last 11/2024. She says the nodules cause a stinging sensation in her hand. She says she also hs similar nodules in her left palm, but no contractures. Her step [id number] apparently has significant deformity secondary to Dupuytren's and has had a couple of surgeries. She denies any numbness, tingling, locking, or catching. 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 [facility]LY [facility] Medical History (Updated 05/27/25 @ 17:45 by BOBBI Armstrong) Anxiety Left foot drop Hypothyroidism HTN (hypertension) Surgical History H/O colonoscopy (~09/14/16) S/P lumbar spine operation No pertinent past surgical history Family History Father No problems noted. 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 Cognitive needs: No Hearing needs: No Vision needs: Yes Review of Systems Const All systems reviewed & are unremarkable except as noted in HPI and below Physical Exam Vital Signs: BMI result Body Mass Index 21.0 Const General: cooperative, healthy appearing and no acute distress Orientation/consciousness: patient oriented x3 HEENT Head: Yes normocephalic and Yes atraumatic Eyes EOM: EOMs intact bilaterally Resp Effort & Inspection: normal respiratory effort and able to speak in complete sentences Cardio Jugular venous distension: no JVD Skin General skin exam: turgor normal Rashes: no rashes Neuro General: patient oriented x3 Extrem Other: Evaluation of Right Upper Extremity: The patient is alert, oriented, and in no acute distress Neuro: Median, Ulnar, Radial nerves motor and sensory intact and sensation is normal to the tips of all digits Vascular: Cap refill brisk ROM: She can bring all her fingers closed to a fist She can actively extend all her fingers except for her small finger, where she can actively extend the small finger PIP joint to about 20 degrees from full extension Small finger can be passively extended to neutral or 0 degrees. Small finger: MCP 0/PIP 20 Dupuytrens nodules in the mid palm Dupuytrens cord attached to the abductor. Skin: No lacerations or abrasions. General: No Ecchymosis. No Erythema or evidence of infection. Radiographs: 3 views of bilateral hands from 05/27/25 were reviewed by me today in clinic. They show no fractures or dislocations. Psych Appearance: grossly normal Affect: normal affect Attitude: cooperative Assessment & Plan Assessment & Plan (1) Dupuytren's contracture of right hand: Code(s): M72.0 - Palmar fascial fibromatosis [Dupuytren] Category: Medical Plan Assessment & Plan: 1. Right small finger Dupuytrens contracture MCP 0/PIP 20/DIP 0 I educated her about this condition I discussed operative and non-operative treatment options. She had some questions about alternative treatment options, including the use of radiation. Evidently radiation therapy is something currently being offered at [facility] for Dupuytren's disease. I explained that I do not know much about this. A quick look online suggest this is something that may be offered an academic trials. At this time no operative intervention warranted She will follow up in 6 months to see how she is doing, sooner if she has any concerns Please note that greater than 40 minutes was spent with this patient going over the history, evaluating the patient and radiographs, formulating possible treatment options, discussing them with the patient, and documenting the visit. Scribed for Dona Davis MD by Noe Triplett, medical staffing coordinator, on 06/25/25 at 1:35 PM, EST. Coding Level of Care Code Est Pt Level 4 (54399) Diagnoses Dupuytren's contracture of right hand M72.0
[2025-06-25 13:10] VITALS: BMI 21.0
--- OUTSIDE RECORDS SUMMARY | 2025-06-25 15:27 | XMS_ITS | Clinical Summary ---
Author Organization [facility] Address [address] [place] [address] Phone Care Team Providers Care Horse Race Timer Name Role Phone Maria E Ulloa MD Primary Care Provider [phone] Encounters Date Type Department Care Team Description 05/07/2025 9:13 AM EDT - 05/07/2025 11:59 PM EDT Hospital [facility] [address] [address] Encounter for screening mammogram for breast cancer Discharge Disposition: Home or Self Care from Last 3 Months Surgical History Surgery Date Site/Laterality Comments OTHER SURGICAL HISTORY PROCEDURE: SKIN GRAFT <100SQCM TUBAL LIGATION 1990 PROCEDURE: HISTORICAL TUBAL LIGATION TONSILLECTOMY age 5 PROCEDURE: HISTORICAL TONSILLECTOMY OTHER SURGICAL HISTORY 04/01/2009 PROCEDURE: MO TOTAL ABDOMINAL HYSTERECT W/WO RMVL TUBE OVARY; COMMENT: LSO also. COLONOSCOPY 08/11/2005 PROCEDURE: HISTORICAL COLONOSCOPY; COMMENT: Diverticulosis, Dr. [place], [facility] OTHER SURGICAL HISTORY infant PROCEDURE: MO PYLOROPLASTY; COMMENT: Surgery for pyloric stenosis in [...] 09/04/2022 Hypertension/CHF/CAD Annual BMP Blood Test 09/15/2022 Depression Screening 10/02/2024 COVID-19 Vaccine ( - season) 2025 Influenza Vaccine (#1) 2025 Breast Cancer Screening [...] year. Mammo Location: [facility], [address] [place] [address], [id number], . -------- FINAL REPORT -------- Dictated By: Maite Hernandez Dictated Date: 05/07/2025 11:06 ET Assigned Physician: Maite Hernandez Reviewed and Electronically Signed By: Maite Hernandez Signed Date: 05/07/2025 11:12 ET Workstation ID: [id number] Transcribed By: Self Edit Transcribed Date: 05/07/2025 [...] year. Mammo Location: [facility], [address] [place] [address], [id number], . -------- FINAL REPORT -------- Dictated By: Maite Hernandez Dictated Date: 05/07/2025 11:06 ET Assigned Physician: Maite Hernandez Reviewed and Electronically Signed By: Maite Hernandez Signed Date: 05/07/2025 11:12 ET Workstation ID: [id number] Transcribed By: Self Edit Transcribed Date: 05/07/2025 11:06 ET us Self Referral Sppl IMG BI PROCEDURES Final Resul t from Last 3 Months Insurance [facility] Care Teams Horse Race Timer Relationship Specialty Start Date End Date Maria E Ulloa MD [address] [facility] [address] PCP - General 02/13/1994
--- OUTSIDE RECORDS SUMMARY | 2025-06-25 15:27 | XMS_ITS | Patient Health Record ---
Author Organization [facility] Address [address] [place] [address] Care Team Providers Care Pathology Technologist Name Role Phone Maria E Ulloa MD Primary Care Provider Unavaila ble Black, Lexie Unavailable [phone] Allergies Allergen (clinical drug ingredient) Drug/Non Drug [...] hallux malleus of left great toe (disorder) ([id number]) Hallux limitus of left foot (M20.5X2) Active confirmed Plan Of Treatment No Information Insurance Providers Payer Name Payer Address Payer Phone Subscriber Number Group Number Insured Name Patient Relationship to Insured Coverage Start Date Coverage End Date [facility] [address] [place] [address] [id number] Rosibel Andino Self - patient is the insured Medical (General) History Medical History History ICD Code Back pain Chicken pox Depression High blood pressure Measles Sciatica Spina bifida Thyroid disorder Surgical History Surgery Date(Month/Year) microdiscectomy (L4-L5) 08/2016 Hysterectomy 04/2009
== END 2025-06-25 14:04 | disposition home or self-care (01) ==
LOC: HO.HOS 13:01
PROVIDERS: PCP Internal Medicine; Visit Provider Orthopaedic Surgery
DX: M72.0 Palmar fascial fibromatosis [Dupuytren] (principal)
CPT/HCPCS: 99214